=== PATIENT | female | born 1980 | race Caucasian/White ===

== ENCOUNTER 2016-07-30 09:47 | Inpatient (IN) | payer BC ==
[~2016-07-30] VITALS: Ht 157.5 cm; Wt 82.3 kg
[2016-09-09] VITALS (59 sets, daily range): BP systolic 111–181; BP diastolic 55–100; PULSE 54–144; TEMP 97.9–98.2
[2016-09-09] MEDS ORDERED: TANDEM PLUS PO (08:04)
[2016-09-09] MEDS ORDERED: FERROUS SULFATE65 MG PO (08:06)
[2016-09-09 08:15] LABS: BASO % 0.3 % (0.0-2.0); EOS # 0.1 (0.0-0.7); EOS % 0.8 % (0-4.0); GRAN # 7.4 (1.4-6.5); GRAN % 69.7 % (42.2-75.2); HEMOGLOBIN 12.5 g/dl (12.5-16.0); LYMPH # 2.6 (1.2-3.4); MEAN CELL VOLUME 90 fl (80.0-100.0); MEAN CORPUSCULAR HEMOGLOBIN 32 pg (27.0-31.0); MEAN CORPUSCULAR HGB CONC 35 g/dl (33.0-37.0); MEAN PLATELET VOLUME 12.6 fl (7.4-10.4); MONO # 0.5 (0.1-0.6); MONO % 4.9 % (1.7-9.3); PLATELET COUNT 140 K/mm3 (130-400); RED BLOOD COUNT 3.95 M/mm3 (4.10-5.30); REDCELL DISTRIBUTION WIDTH-CV 13.2 % (11.5-14.5); WHITE BLOOD COUNT 10.6 K/mm3 (4.8-10.8)
[2016-09-09 08:17] LABS: HEMATOCRIT 35.4 % (37.0-47.0)
[2016-09-10] VITALS (7 sets, daily range): BP systolic 112–128; BP diastolic 60–82; PULSE 77–90; TEMP 97.8–98.9
[2016-09-11 08:00] VITALS: BP 118/67; PULSE 87; TEMP 97.5
[2016-09-11] MEDS ORDERED: IBU600 MG PO (09:06)
[2016-09-11] MEDS ORDERED: PERCOCET 325 MG1 TA2 PO (09:06)
[2016-09-11 17:30] VITALS: BP 127/71; PULSE 94; TEMP 98.2
== END 2016-09-11 20:45 | disposition home or self-care (01) | DRG 774 ==
LOC: LDRO 09-01 08:18 → EDSTATUS 09-01 15:46 → LDR 09-09 07:15 → OB 09-09 07:15 → LDR 09-09 15:47 → OB 09-10 04:00
PROVIDERS: Obstetrics & Gynecology
PROC: 10E0XZZ Delivery of Products of Conception, External Approach (ICD-10-PCS; principal; 2016-09-09)
PROC: 0KQM0ZZ Repair Perineum Muscle, Open Approach (ICD-10-PCS; 2016-09-09)
PROC: 3E033VJ Introduction of Other Hormone into Peripheral Vein, Percutaneous Approach (ICD-10-PCS; 2016-09-09)
DX: O48.0 Post-term pregnancy (principal); O44.43 Low lying placenta NOS or without hemorrhage, third trimester; O36.0130 Maternal care for anti-D [Rh] antibodies, third trimester, not applicable or unspecified; O43.193 Other malformation of placenta, third trimester; O77.0 Labor and delivery complicated by meconium in amniotic fluid; O70.1 Second degree perineal laceration during delivery; Z3A.41 41 weeks gestation of pregnancy; Z37.0 Single live birth; O09.523 Supervision of elderly multigravida, third trimester
CPT/HCPCS: J2400; J2590; J7120

== ENCOUNTER → 2016-09-26 | Outpatient (CLI) | payer BC ==
[~2016-09-26] MED LIST: FERROUS SULFATE65 MG PO; IBU600 MG PO; PERCOCET 325 MG1 TA2 PO; TANDEM PLUS PO
== END ==
LOC: OLC 15:11
DX: Z39.1 Encounter for care and examination of lactating mother (principal); Z71.89 Other specified counseling

== ENCOUNTER → 2016-10-15 | Outpatient (CLI) | payer BC | LOC: OLC 14:57 | DX: Z39.1 Encounter for care and examination of lactating mother (principal); Z71.89 Other specified counseling ==

== ENCOUNTER 2018-06-24 03:05 | Inpatient (IN) | payer BC ==
[2018-06-24] VITALS (11 sets, daily range): BP systolic 95–133; BP diastolic 55–98; PULSE 72–98; TEMP 97.4–98.1
[~2018-06-24] VITALS: Ht 165.1 cm; Wt 82.3 kg
--- NOTE | 2018-06-24 03:05 | NUR ---
304- Pt arrived on unit via wheelchair with reports of SROM at midnight with clear fluid. Pt states "I need to push" as soon as she was on the unit. 307- Dr. Romero called to room. SVE done per Dr. Romero /+1. Pt set up for delivery. IV started. 321- of viable male . [place] placed on mom's abdomen. Cords clamped and cut. Care of the given over to nursery nurse at the bedside. 327- of placenta. Pitocin started at 333ml/hr per order and protocol. Fundus firm with moderate lochia per Dr. Romero.
--- NOTE | 2018-06-24 04:20 | NUR ---
Pt reports IV leaking. Attempted to adjust positioning of IV but not successful. Information reviewed with Dr. Romero. Per Dr. Romero - ok for no INT access, given IM methergine, monitor bleeding and replace INT if bleeding increases. See EMAR for details.
[2018-06-24 04:32] LABS: BASO % 0.2 % (0.0-2.0); EOS % 0.1 % (0-4.0); GRAN # 13.8 (1.4-6.5); GRAN % 89.2 % (42.2-75.2); HEMOGLOBIN 10.4 g/dl (12.5-16.0); LYMPH # 1.1 (1.2-3.4); LYMPH % 7.2 % (20.0-51.0); MEAN CELL VOLUME 89 fl (80.0-100.0); MEAN CORPUSCULAR HEMOGLOBIN 31 pg (27.0-31.0); MEAN CORPUSCULAR HGB CONC 34 g/dl (33.0-37.0); MONO # 0.4 (0.1-0.6); MONO % 2.8 % (1.7-9.3); PLATELET COUNT 167 K/mm3 (130-400); RED BLOOD COUNT 3.39 M/mm3 (4.10-5.30); REDCELL DISTRIBUTION WIDTH-CV 13.4 % (11.5-14.5)
[2018-06-24 04:34] LABS: HEMATOCRIT 30.2 % (37.0-47.0)
--- NOTE | 2018-06-24 05:15 | NUR ---
Pt up to the bathroom with standby assist and without complications. Pt able to void. Jacqueline-care done. Pt transferred to 207 ambulatory. Oriented to room, bed and call light within reach. Plan of care for reviewed.
--- NOTE | 2018-06-24 10:27 | NUR ---
Initial visit attempt; Family resting, Multimedia Project Manager left card of congratulations and God's blessings for the of their son and information regarding the availability of spiritual care at [facility].
--- NOTE | 2018-06-24 16:05 | NUR ---
Presents to labor and delivery. States started to contract at 3:40, and says coming every three minutes. States feeling more pain to right lower back. Vag exam done, dilate one.
--- NOTE | 2018-06-24 17:54 | NUR ---
Tylenol 650 mg given per request and as ordered.
[2018-06-25 06:46] VITALS: BP 105/65; PULSE 67; TEMP 98.1
[2018-06-25 07:00] VITALS: BP 102/65; PULSE 72; TEMP 98.1
[2018-06-25] MEDS ORDERED: IBU800 M1 PO (14:18)
[2018-06-25 15:43] VITALS: BP 120/69; PULSE 60; TEMP 97.9
[2018-06-25 21:00] VITALS: BP 109/66; PULSE 69; TEMP 98.3
[2018-06-26 09:00] VITALS: BP 98/77; PULSE 78; TEMP 97.9
== END 2018-06-26 16:00 | disposition home or self-care (01) | DRG 807 ==
LOC: LDRO 03:05 → LDR 03:52 → OB 05:49
PROVIDERS: ADMIT Student in an Organized Health Care Education/Training Program
PROC: 10E0XZZ Delivery of Products of Conception, External Approach (ICD-10-PCS; principal; 2018-06-24)
PROC: 0KQM0ZZ Repair Perineum Muscle, Open Approach (ICD-10-PCS; 2018-06-24)
DX: O70.1 Second degree perineal laceration during delivery (principal); Z37.0 Single live birth; Z3A.38 38 weeks gestation of pregnancy; O26.893 Other specified pregnancy related conditions, third trimester; Z67.11 Type A blood, Rh negative; O62.3 Precipitate labor; O69.81X0 Labor and delivery complicated by cord around neck, without compression, not applicable or unspecified; Z88.0 Allergy status to penicillin
CPT/HCPCS: J2210; J2590; J7120

== ENCOUNTER → 2018-07-07 | Outpatient (CLI) | payer BC ==
[~2018-07-07] MED LIST changes: +IBU800 M1 PO
--- NOTE | 2018-07-07 14:26 | NUR ---
Pt, Isela Thompson, presents to walk-in clinic with 13 day old baby boy, Alix Bro, for a evaluation. She has concerns about his latch, spitting up, and leaking milk while he is . Alix was born a "few weeks early" on [birth year] and weighed 6#5.1oz (2865 gms). Pt reports Alix was seen on 06/29/18 at [facility] and weighed 6#5oz. Today he weighs 6#11.7oz (3054gms). Alix latches well, nurses the left side first and has a gain of 44 gms. He takes about a 20 min break for burping and after he nurses the right side he has a total weight gain of 58gms. Alix does have a small spit up after he is done nursing. and new infant concerns addressed. Alix has been evaluated by a pediatric dentist and will have an upper lip tie and tongue tie revision on 07/16/18. Pt's previous had pretty significant issues and was treated later in the BF relationship. POC: Breastfeed ad talha. F/U: at walk-in clinic as desired. Questions invited and answered.
== END ==
LOC: LAC 11:44
DX: Z39.1 Encounter for care and examination of lactating mother (principal); Z71.89 Other specified counseling

== ENCOUNTER → 2018-07-21 | Outpatient (CLI) | payer BC ==
--- NOTE | 2018-07-21 11:10 | NUR ---
Pt, Isela Thompson, into clinic with 4 week old baby boy, Alix Bro for evaluation following tongue tie revision on 07/15/18. Alix was born on [birth year] and weight 6# 5.1 oz, two weeks ago at clinic he weighed 6# 11.7 oz (3054 g).Today's prefeed weight was noted at 7# 6.3 oz (3352 g), an average of approx 0.7 oz per day gain. Isela states she feels Suzanne has been having some latch issue since his tongue tie revision. He also has been spitting up after feedings. Isela states Alix has been nursing approx 9 times per day; however, she is waking him at night for feedings. Diapers are WNL. While in clinic, this LC assisted Isela with obtaining a deeper latch on each breast. After going back and forth between breast for approx 45 min time, Alix had a total gain of 56 g. LC noted Alix spit up multiple times while in clinic. POC: Milk supply appears to be slightly low and Alix's weight gain is slightly lower than expectations, also concerns regarding frequent spitting up. LC recommended 3 step feeding process to help protect and increase milk supply. LC recommended offering 0.5 -1 oz supplement of EBM/formula based off 's cues after feeding. Isela will also schedule an appointment with peditriacian to address spitting up issues. Anticipate return to clinic next week.
== END ==
LOC: OLC 10:13
DX: Z39.1 Encounter for care and examination of lactating mother (principal); Z71.89 Other specified counseling

== ENCOUNTER → 2018-08-04 | Outpatient (CLI) | payer BC ==
--- NOTE | 2018-08-04 14:06 | NUR ---
Pt, Isela Thompson, presents to walk-in clinic with 5 week old baby boy, Alix Bro, for a evaluation and to evaluate if his lip tie revision is adequate. Alix was born on [birth year] and weighed 6#5.1oz. His voids and stools are WNL. On 07/21/18 his weight was 7#6.2oz. Today Alix weighs 8#4.9oz, for a gain of 14.7oz in the last 2 weeks. He had a tongue and lip tie revision about 3 weeks ago and the tonuge needed a second release so pt is wanting to make sure the lip is WNL. Alix latches easily here, pt is instructed on how to roll his top and bottom lip out to get more areola coverage. Swallows noted. After bilaterally Alix has a weight gain of 82 gms (2.9oz), with 68 gms for the left and 14 from the right. Pt states right side production is quite a bit less. POC: Breastfeed ad talha. Try pumping on the right side after to boost production. F/U: Walk in clinic as desired. Questions invited and answered.
== END ==
LOC: OLC 10:16
DX: Z39.1 Encounter for care and examination of lactating mother (principal); Z71.89 Other specified counseling

== ENCOUNTER → 2020-10-18 | Outpatient (CLI) | payer BC ==
[~2020-10-18] MED LIST changes: +NATURAL IRON65 MG PO
== END ==
LOC: DIA.ED 07:40
DX: O24.419 Gestational diabetes mellitus in pregnancy, unspecified control (principal)
CPT/HCPCS: G0108

== ENCOUNTER → 2020-11-06 | Outpatient (CLI) | payer BC | LOC: DIA.ED 10:35 | DX: O24.419 Gestational diabetes mellitus in pregnancy, unspecified control (principal) | CPT/HCPCS: G0108 ==

== ENCOUNTER 2020-11-28 19:25 | Inpatient (IN) | payer BC ==
[2020-11-28] VITALS (9 sets, daily range): BP systolic 100–150; BP diastolic 55–83; PULSE 74–100; TEMP 97.8–98
[~2020-11-28] VITALS: Ht 165.1 cm; Wt 78.2 kg
[~2020-11-28 19:25] MED LIST changes: -NATURAL IRON65 MG PO
[2020-11-28 20:36] LABS: BASO % 0.3 % (0.0-2.0); EOS # 0.1 (0.0-0.7); EOS % 0.6 % (0-4.0); GRAN # 7.7 (1.4-6.5); GRAN % 66.5 % (42.2-75.2); HEMATOCRIT 37.9 % (37.0-47.0); HEMOGLOBIN 13.2 g/dl (12.5-16.0); LYMPH # 3.2 (1.2-3.4); LYMPH % 27.6 % (20.0-51.0); MEAN CELL VOLUME 88 fl (80.0-100.0); MEAN CORPUSCULAR HEMOGLOBIN 31 pg (27.0-31.0); MEAN CORPUSCULAR HGB CONC 35 g/dl (33.0-37.0); MEAN PLATELET VOLUME 11.6 fl (7.4-10.4); MONO # 0.6 (0.1-0.6); MONO % 4.7 % (1.7-9.3); PLATELET COUNT 191 K/mm3 (130-400); RED BLOOD COUNT 4.29 M/mm3 (4.10-5.30); REDCELL DISTRIBUTION WIDTH-CV 13.2 % (11.5-14.5)
[2020-11-28] MEDS ORDERED: NATURAL IRON65 MG PO (23:43)
[2020-11-29 03:35] VITALS: BP 106/70; PULSE 81; TEMP 98.6
[2020-11-29 07:15] VITALS: BP 117/70; PULSE 69; TEMP 98
[2020-11-29 12:30] VITALS: BP 108/66; PULSE 78; TEMP 97.8
[2020-11-29 17:30] VITALS: BP 102/51; PULSE 74; TEMP 97.9
[2020-11-29 20:00] VITALS: BP 107/56; PULSE 63; TEMP 98.4
[2020-11-30 07:00] VITALS: BP 105/66; PULSE 74; TEMP 98.4
[2020-11-30] MEDS ORDERED: IBU800 M1 PO (08:23)
== END 2020-11-30 16:22 | disposition home or self-care (01) | DRG 807 ==
LOC: LDRO 19:25 → LDR 19:58 → OB 19:58
PROVIDERS: Student in an Organized Health Care Education/Training Program; ADMIT Obstetrics & Gynecology
PROC: 0KQM0ZZ Repair Perineum Muscle, Open Approach (ICD-10-PCS; principal; 2020-11-28)
PROC: 10E0XZZ Delivery of Products of Conception, External Approach (ICD-10-PCS; 2020-11-28)
PROC: 10907ZC Drainage of Amniotic Fluid, Therapeutic from Products of Conception, Via Natural or Artificial Opening (ICD-10-PCS; 2020-11-28)
DX: O24.420 Gestational diabetes mellitus in childbirth, diet controlled (principal); Z37.0 Single live birth; Z3A.39 39 weeks gestation of pregnancy; O26.893 Other specified pregnancy related conditions, third trimester; O70.1 Second degree perineal laceration during delivery
CPT/HCPCS: J2590; J7120